=== PATIENT | male | born 2000 | race African-American/Black ===

== ENCOUNTER 2023-02-01 21:17 | Emergency (ER) | payer OTHER ==
[2023-02-01 21:20] VITALS: RESP 18; TEMP 98; BMI 22.9
[2023-02-01] MEDS ORDERED: ACETAMINOPHEN 500 MG TABLET (FP) PO ONE (22:00)
[2023-02-01] MEDS ORDERED: ACETAMINOPHEN 325 MG TABLET (FP) ONE (22:37)
[2023-02-01] MEDS ORDERED: SODIUM CHLORIDE NASAL SPRAY 44 ML BOTTLE NS ONE (23:10)
[2023-02-01 23:19] VITALS: BP 149/78; PULSE 68
== END 2023-02-01 23:51 | disposition home or self-care (01) ==
LOC: JER 21:17
DX: S93.602A Unspecified sprain of left foot, initial encounter (principal); M79.672 Pain in left foot; T59.811A Toxic effect of smoke, accidental (unintentional), initial encounter; R07.9 Chest pain, unspecified; Y30.XXXA Falling, jumping or pushed from a high place, undetermined intent, initial encounter; Y93.39 Activity, other involving climbing, rappelling and jumping off; Y92.039 Unspecified place in apartment as the place of occurrence of the external cause
CPT/HCPCS: 71045-TC-FY; 73610-TC-LT-FY; 73630-TC-LT; 93005; 93010; 99284-25